=== PATIENT | female | born 1970 | race Caucasian/White ===

== ENCOUNTER 2016-12-16 18:22 | Emergency (ER) | payer OTHER, MEDICARE ==
--- NOTE | 2016-12-16 20:49 | RAD ---
RIGHT ELBOW 3 VIEWS HISTORY: Right elbow pain after opening a car door. COMPARISONS: 01/02/2016. TECHNIQUE: Frontal, lateral, and oblique views of the right elbow. ALIGNMENT: Grossly unremarkable. FRACTURE: No displaced acute fracture. DEGENERATIVE CHANGE: Corticated calcifications seen along the capitellum and lateral epicondyles, seen above the ulna on lateral view; these are unchanged. Minor osteoarthritic changes with osteophyte formation. SOFT TISSUES: Grossly unremarkable. RADIOOPAQUE FOREIGN BODY: None. IMPRESSION: No gross malalignment or displaced acute fracture noted. Unchanged radiographic appearance with redemonstration of corticated calcifications at lateral aspects of the elbow. Redemonstration of minor osteoarthritic changes.
== END 2016-12-16 21:17 | disposition home or self-care (01) ==
LOC: ED 18:22
DX: S53.401A Unspecified sprain of right elbow, initial encounter (principal); E03.9 Hypothyroidism, unspecified; E66.9 Obesity, unspecified; Z86.711 Personal history of pulmonary embolism; X50.0XXA Overexertion from strenuous movement or load, initial encounter; Y92.810 Car as the place of occurrence of the external cause